=== PATIENT | male | born 1980 | race Caucasian/White ===

== ENCOUNTER 2017-02-02 07:21 | Day surgery (SDC) | payer OTHER ==
[2017-02-01 09:57] VITALS: BMI 31.7
--- NOTE | 2017-02-02 08:46 | HP ---
Satellite [facility] - Chief Complaint Chief Complaint: right knee pain - Past Medical History Allergies/Adverse Reactions: Allergies Allergy/AdvReac Type Severity Reaction Status Date / Time Penicillins Allergy Unknown Verified 02/02/17 07:58 - Current Medications Current Medications: Home Medications Medication Instructions Recorded Amlodipine Besylate 10 mg PO DAILY 02/01/17 Ascorbic Acid [Vitamin C] 500 mg PO DAILY 02/01/17 Aspirin [Aspirin EC] 81 mg PO DAILY 02/01/17 Lisinopril [Prinivil -] 40 mg PO DAILY 02/01/17 Metoprolol Tartrate 75 mg PO BID 02/01/17 Multivitamins [Multivit ([facility] 1 tab PO DAILY 02/01/17 Formulary)] Oxycodone HCl/Acetaminophen 1 - 2 tab PO Q6H #50 tab MDD 8 02/02/17 [Percocet 5-325 mg Tablet -] Satellite Physical Exam - Physical Examination Vital Signs: Vital Signs Period Temp Pulse Resp BP Sys/Cano Pulse Ox Last 24 Hr 97.7 F 53 18 156/86 100 General Appearance: Well Nourished, Well Developed, Alert & Oriented x3 ENT: Clear Lung: Normal air movement Heart: Regular rate & rhythm Extremities: Other (right knee- + swelling, + ttp, decr rom, + mcmurrays, + apleys, nvi MRI + lmt) Neurological: Intact, Alert, Oriented Satellite Impression/Plan - Impression/Plan Impression: right knee internal derangement Operative Procedure: right knee arthroscopy Date to be Performed: 02/02/17
[2017-02-02] MEDS ORDERED: ACETAMINOPHEN INJECTION 100 ML IVPB ONE (09:16)
[2017-02-02] MEDS ORDERED: PROPOFOL 20 ML ONE ×2 (09:18)
[2017-02-02] MEDS ORDERED: MIDAZOLAM HCL 2 MG/2 ML SINGLE DOSE VIAL ONE (09:18)
[2017-02-02] MEDS ORDERED: ceFAZolin SODIUM 1 GM VIAL IVPB ONE (09:30)
[2017-02-02] MEDS ORDERED: ONDANSETRON 4 MG/2 ML VIAL ONE (09:47)
[2017-02-02] MEDS ORDERED: LACTATED RINGERS SOLUTION 1,000 ML IV SCH (10:15)
[2017-02-02] MEDS ORDERED: ONDANSETRON 4 MG/2 ML VIAL IVPUSH PRN (10:15)
--- NOTE | 2017-02-02 10:29 | OP ---
Operative Note - Note: Operative Date: 02/02/17 Pre-Operative Diagnosis: right lateral meniscus tear Operation: arhtroscopy right knee with partial lateral meniscectomy Post-Operative Diagnosis: Same as Pre-op Surgeon: Zaire Golden Anesthesia: General Operative Report Dictated: Yes
--- NOTE | 2017-02-02 11:46 | OP ---
DATE OF OPERATION: 02/02/2017 PREOPERATIVE DIAGNOSIS: Right lateral meniscus tear. POSTOPERATIVE DIAGNOSIS: Right lateral meniscus tear. PROCEDURE: Arthroscopy right knee with partial lateral meniscectomy. SURGICAL ATTENDING: Zaire Golden MD ANESTHESIA: General with LMA. CLOSURES: 4-0 nylon. COMPLICATIONS: None. CONDITION: To recovery room in stable condition. DESCRIPTION OF PROCEDURE: The patient was taken to the operating room on February 02, 2017. General anesthesia with LMA was administered by the anesthesiologist. IV Keflex administered prophylactically prior to this case (as the patient has a valve). Her right lower extremity was prepped and draped in the usual sterile fashion. The superolateral and mediolateral infrapatellar portal sites were infiltrated with 1% Xylocaine with epinephrine. Superolateral port was made with 15 blade and blunt trocar. The knee was aspirated and inflated with a cocktail of 10 mL of 1% Xylocaine, 10 mL of 0.5% Marcaine, and 20 mL of arthroscopic saline. The medial and lateral infrapatellar ports were then made with a 15 blade and blunt trocar. The scope was placed in the lateral infrapatellar port up to suprapatellar pouch. The pouch was visualized to be clean. The medial and lateral gutters were visualized to be clean. The undersurface of the patella and trochlea were visualized to be basically intact. With valgus stress on the knee, the medial compartment was entered. Medial meniscus was visualized and probed and found to be intact. The medial femoral condyle was run and found to be intact as was the medial tibial plateau. At 90 degrees, the ACL was visualized and probed and found to be intact. In the figure-4 position, the lateral compartment was entered. The lateral meniscus had a complex tear extending from posterior all the way to anterior. This was debrided back to residual meniscus, which was only posteriorly stable. The rest of the meniscus was taken out leaving just a small area posteriorly remaining. The lateral and femoral condyle was cleaned of any loose articular cartilage as was the lateral tibial plateau. There seemed to be a significant amount of DJD in both these structures. The knee was irrigated with copious amounts of irrigation. The port was closed using 4-0 nylon. Prior to closure, 20 mL of 0.5% Marcaine was infused into the knee for postoperative analgesia. A sterile pressure dressing was placed over the knee. The patient was awakened from anesthesia and transferred to recovery in stable condition with no complications. Estimated blood loss negligible. Beth [id number]
[2017-02-02 12:15] VITALS: TEMP 98.2
[2017-02-02 13:18] VITALS: BP 145/74; PULSE 52
--- NOTE | 2017-02-03 16:29 | PATH ---
Surgical Pathology Report Patient Name: BREANA SANDERS Med. Rec. #: [id number] /Age/Gender: 1980 (Age: 36) / M Account: [id number] Location: [facility] SURGICAL Taken: 02/02/2017 Received: 02/02/2017 Reported: 02/03/2017 Physicians: Zaire Golden M.D. 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 Electronically Signed Evgeny Camargo M.D. Gross Description Received in formalin, labeled "right knee shavings" is a 7.0 x 4.5 x 0.8 cm aggregate of yan-yellow soft tissue fragments. A development representative portion is submitted in one cassette. 02/02/201702/02/2017
== END 2017-02-02 13:26 | disposition home or self-care (01) ==
LOC: JASU-SURG 07:21
PROVIDERS: ATTEND Orthopaedic Surgery
PROC: 0SBC4ZZ Excision of Right Knee Joint, Percutaneous Endoscopic Approach (ICD-10-PCS; principal; 2017-02-02 08:40)
DX: M23.251 Derangement of posterior horn of lateral meniscus due to old tear or injury, right knee (principal)
CPT/HCPCS: 88304-TC; 94760; 97116-GP